=== PATIENT | female | born 1980 | race Hispanic/Latino ===

== ENCOUNTER 2018-11-27 08:44 | Inpatient (IN) | payer OTHER ==
[2018-11-27] VITALS (14 sets, daily range): BP systolic 96–135; BP diastolic 44–84
[~2018-11-27] VITALS: Ht 167.6 cm; Wt 83.5 kg
[2018-11-27] MEDS ORDERED: LACTATED RINGERS 1000ML 1,000 ML IV PRN (09:02)
[2018-11-27] MEDS ORDERED: OXYTOCIN-LR 20 UNITS/1000 ML 1,000 ML IV SCH (09:15)
[2018-11-27 09:32] LABS: MEAN CORPUSCULAR HEMOGLOBIN 32.6 pg (27.0-33.0); MEAN CORPUSCULAR HGB CONC 34.3 g/dL (32.0-36.0); NUCLEATED RED BLOOD CELLS 0.1 % (0.0-0.19); PLATELET COUNT (AUTO) 125 K/uL (130-400); RED BLOOD CELL COUNT(AUTO) 4.32 MIL/uL (4.00-5.50); RED CELL DISTRIBUTION WIDTH 14.1 % (11.0-15.5); WHITE BLOOD COUNT (AUTO) 8.3 K/uL (4.8-10.8)
[2018-11-27 10:00] LABS: CREATININE 0.8 mg/dL (0.5-1.5); POTASSIUM 4.3 mmol/L (3.5-5.1)
[2018-11-27 10:05] LABS: ALBUMIN 2.4 g/dL (3.5-5.0); BILIRUBIN,TOTAL 0.3 mg/dL (0.2-1.0); TOTAL PROTEIN, SERUM 6.5 g/dL (6.0-8.3); URIC ACID 5.5 mg/dL (2.6-7.2)
[2018-11-27 10:08] LABS: INR 0.86 (0.85-1.15); PARTIAL THROMBOPLASTIN TIME 27.1 SEC (26.3-35.5); PROTHROMBIN TIME 9.1 SEC (9.6-11.6)
[2018-11-27] MEDS ORDERED: CEFAZOLIN SODIUM 1 GM VIAL ONE (10:41)
[2018-11-27] MEDS ORDERED: CALDOLOR 800MG+NS 250ML 250 ML IV ONE (10:42)
[2018-11-27] MEDS ORDERED: CALDOLOR 800MG+NS 250ML 250 ML IV PRN (10:45)
[2018-11-27] MEDS ORDERED: CEFAZOLIN SODIUM 1 GM VIAL IVP PRN (10:45)
[2018-11-27] MEDS ORDERED: LACTATED RINGERS 1000ML 1,000 ML IV SCH (10:45)
[2018-11-27] MEDS ORDERED: FENTANYL CITRATE PF 50 MCG/1 ML 2ML VIAL ONE (10:59)
[2018-11-27] MEDS ORDERED: DURAMORPH PF1 MG/ML 10ML AMP IV ONE (10:59)
[2018-11-27] MEDS ORDERED: ONDANSETRON HCL 4 MG/2 ML VIAL ONE (10:59)
[2018-11-27] MEDS ORDERED: OXYTOCIN 10 UNIT/1ML 10ML VIAL ONE (10:59)
[2018-11-27] MEDS ORDERED: CEFAZOLIN SODIUM 1 GM VIAL IVP ONE (11:30)
[2018-11-27] MEDS ORDERED: EPHEDRINE SULFATE 50 MG/ML AMPULE ONE (11:46)
[2018-11-27] MEDS ORDERED: PHENYLEPHRINE HCL 10 MG/ML 1ML VIAL IV ONE (12:00)
[2018-11-27 12:09] LABS: APPEARANCE,URINE Clear (CLEAR); BILIRUBIN,URINE Negative (NEGATIVE); COLOR,URINE Yellow (YELLOW); GLUCOSE, URINE (UA) Negative (NEGATIVE); KETONES,URINE Negative (NEGATIVE); LEUKOCYTE ESTERASE ,URINE Negative (NEGATIVE); NITRATE,URINE Negative (NEGATIVE); OCCULT BLOOD,URINE Negative (NEGATIVE); PH,URINE 7.5 (5.0-8.0); PROTEIN,URINE Negative (NEGATIVE); UROBILINOGEN,URINE 0.2 mg/dL (0.2-1.0)
[2018-11-27 12:17] LABS: AMPHET/METH SCREEN,URINE NEGATIVE (NEGATIVE); BARBITURATE SCREEN, URINE NEGATIVE (NEGATIVE); BENZODIAZEPINES SCREEN,URINE NEGATIVE (NEGATIVE); CANNABINOID SCREEN,URINE NEGATIVE (NEGATIVE); COCAINE SCREEN,URINE NEGATIVE (NEGATIVE); OPIATE SCREEN,URINE NEGATIVE (NEGATIVE); PHENCYCLIDINE SCREEN,URINE NEGATIVE (NEGATIVE)
[2018-11-27] MEDS ORDERED: PROMETHAZINE HCL 25 MG/ML 1ML AMPULE IM PRN (12:30)
[2018-11-27] MEDS ORDERED: DEXTROSE 5 %-0.45 % NACL 1,000 ML IV PRN (12:30)
[2018-11-27] MEDS ORDERED: OXYTOCIN-LR 20 UNITS/1000 ML 1,000 ML IV PRN (12:30)
[2018-11-27] MEDS ORDERED: MEPERIDINE-PF 75 MG/ML SYG IM PRN (12:30)
[2018-11-27] MEDS ORDERED: SODIUM CHLORIDE 0.9% 10 ML VIAL IVP PRN (12:30)
[2018-11-27] MEDS ORDERED: GLYCOPYRROLATE 1 MG/5 ML SYRINGE ONE (13:10)
[2018-11-27] MEDS: CALDOLOR 800MG+NS 250ML 250 ML IV SCH (19:41)
[2018-11-27] MEDS ORDERED: [UNRECOGNIZED DRUG - CODE] PO (19:50)
[2018-11-28 03:16] VITALS: BP 93/52
[2018-11-28] MEDS: CALDOLOR 800MG+NS 250ML 250 ML IV SCH (04:35)
[2018-11-28 06:11] LABS: HEMATOCRIT 39.8 % (36-48); MEAN CORPUSCULAR HEMOGLOBIN 31.9 pg (27.0-33.0); MEAN CORPUSCULAR HGB CONC 33.3 g/dL (32.0-36.0); MEAN CORPUSCULAR VOLUME 95.7 fL (79-99); PLATELET COUNT (AUTO) 139 K/uL (130-400); RED BLOOD CELL COUNT(AUTO) 4.16 MIL/uL (4.00-5.50); RED CELL DISTRIBUTION WIDTH 14.1 % (11.0-15.5); WHITE BLOOD COUNT (AUTO) 8.9 K/uL (4.8-10.8)
--- NOTE | 2018-11-28 06:15 | NUR ---
bucio catheter removed, tip intact. pericare done, assisted to bedside chair, pt tolerated well. Addendum: 11/28/18 at 0631 by RAISSA LÓPEZ RN Amended: Links added.
[2018-11-28 07:20] VITALS: BP 110/65
--- NOTE | 2018-11-28 07:20 | NUR ---
PATIENT ASSESSED AND IS BACK TO BED. INCISION IS OPEN TO AIR AND NO DRAINAGE, OR REDNESS NOTED. INCISION IS OPEN TO AIR WITH HIDDEN STITCH. DENIES PAIN AND PLAN OF CARE EXPLAINED TO PATIENT. PATIENT STATES WANTING TO GO VISIT ONCE SHE CAN GO TO NURSERY. EXPLAINED TO CALL NURSERY AFTER 8AM FOR CLEARANCE TO GO VISIT BABIES.
[2018-11-28 07:25] LABS: HEPATITIS Bs ANTIGEN SCREEN P Negative (Negative)
[2018-11-28 07:30] LABS: RAPID PLASMA REAGIN NONREACTIVE (NONREACTIVE)
[2018-11-28] MEDS ORDERED: ACETAMINOPHEN-CODEINE 300/30MG TAB PO PRN (08:00)
[2018-11-28] MEDS ORDERED: ACETAMINOPHEN EXTRA STRENGTH 500 MG TABLET PO PRN (08:00)
[2018-11-28] MEDS ORDERED: HYDROCODONE/ACETAMINOPHEN 5/325 MG TAB PO PRN (08:00)
[2018-11-28] MEDS ORDERED: DIPH,PERTUSS(ACELL),TET VAC/PF 0.5 ML VIAL IM SCH (08:00)
[2018-11-28] MEDS ORDERED: BISACODYL 10 MG SUPP.RECT RC PRN (08:00)
[2018-11-28] MEDS ORDERED: MEASLES/MUMPS/RUBELLA VACCINE, LIVE 0.5 ML/VIAL SQ SCH (08:00)
--- NOTE | 2018-11-28 08:45 | NUR ---
PATIENT WAS GIVEN A.M. MEDS AND THEN CALLED NURSERY AND WAS INSTRUCTED SHE COULD GO TO NURSERY. ATTEMPTED TO VOID AND COULD NOT. PATIENT IS STILL DUE TO VOID.
[2018-11-28] MEDS: SIMETHICONE 80 MG TAB.CHEW PO PRN ×4 (08:47→20:51)
[2018-11-28] MEDS: DOCUSATE SODIUM 100 MG CAP PO SCH ×2 (08:47→20:51)
[2018-11-28] MEDS: IBUPROFEN 600 MG TABLET PO PRN ×3 (08:50→20:54)
--- NOTE | 2018-11-28 10:00 | NUR ---
DR. BARRON ROUNDED AND UPDATE GIVEN ON PATIENT. PATIENT WALKED TO NURSERY TO VISIT WITH BABIES AND TOLERATED ACTIVITY WELL.
--- NOTE | 2018-11-28 11:45 | NUR ---
UP AND WAS ABLE TO VOID 750CC OF URINE WITH SLIGHT BLOOD TINGES.
[2018-11-28 11:51] VITALS: BP 118/67
[2018-11-28] MEDS: IBUPROFEN 800 MG TAB PO SCH ×2 (12:30→20:30)
[2018-11-28 16:05] VITALS: BP 142/71
[2018-11-28 19:25] VITALS: BP 115/76
[2018-11-29 00:12] VITALS: BP 108/53
[2018-11-29 03:00] VITALS: BP 117/62
[2018-11-29] MEDS: IBUPROFEN 800 MG TAB PO SCH ×2 (05:44→12:03)
--- NOTE | 2018-11-29 07:30 | NUR ---
PATIENT ASSESSED AND C/O DISCOMFORT DUE TO NOT HAVING A BM YET. WARM PRUNE JUICE GIVEN TO DRINK PRIOR TO BREAKFAST. INCISION IS CLEAN AND DRY AND NO REDNESS OR DRAINAGE NOTED. HAS REMAINED AFEBRILE.
[2018-11-29 07:34] VITALS: BP 118/64
--- NOTE | 2018-11-29 08:30 | NUR ---
PATIENT STATES HAVING A BM SOON AFTER HAVING BREAKFAST AND WAS ABLE TO ALSO EXPEL MORE FLATUS. AMBULATED TO NURSERY.
[2018-11-29] MEDS: DOCUSATE SODIUM 100 MG CAP PO SCH (08:51)
[2018-11-29] MEDS: SIMETHICONE 80 MG TAB.CHEW PO PRN ×2 (08:51→12:02)
--- NOTE | 2018-11-29 12:00 | NUR ---
DISCHARGE INSTRUCTIONS GIVEN IN [facility] AND WAS REVIEWED WITH PATIENT. SCRIPT GIVEN TO PATIENT AND NEXT SCHEDULED DOSE EXPLAINED AND DOSAGE. VERBALIZED UNDERSTANDING INSTRUCTION GIVEN.
[2018-11-29 12:43] VITALS: BP 113/76
--- NOTE | 2018-11-29 12:50 | NUR ---
PATIENT WAS TAKEN VIA W/C TO FAMILY VEHICLE IN STABLE CONDITION AND WAS DISCHARGED TO SPOUSE. PATIENT AFEBRILE AND VITAL SIGNS WITH NORMAL LIMITS. TWINS NOT DISCHARGED.
== END 2018-11-29 12:50 | disposition home or self-care (01) | DRG 786 ==
LOC: EDH 08:44 → LDH 08:45 → OBSVTOIN 08:45 → WSH 13:30
PROVIDERS: ADMIT Obstetrics & Gynecology; ATTEND Obstetrics & Gynecology
PROC: 10D00Z1 Extraction of Products of Conception, Low, Open Approach (ICD-10-PCS; principal; 2018-11-27 11:30)
DX: O30.043 Twin pregnancy, dichorionic/diamniotic, third trimester (principal); O60.14X2 Preterm labor third trimester with preterm delivery third trimester, fetus 2; O60.14X1 Preterm labor third trimester with preterm delivery third trimester, fetus 1; O34.211 Maternal care for low transverse scar from previous cesarean delivery; O32.1XX1 Maternal care for breech presentation, fetus 1; O42.913 Preterm premature rupture of membranes, unspecified as to length of time between rupture and onset of labor, third trimester; Z37.2 Twins, both liveborn; Z3A.34 34 weeks gestation of pregnancy
CPT/HCPCS: 36415; 59510; 76805; 80053; 80305; 81003; 84550; 85027; 85384; 85610; 85730; 86592; 86701; 86850; 86900; 86901; 87340; 87390; 88307; A4344; A4450; A4606; G0378; J0690; J1741; J2274; J2370; J2405; J2590; J3010; J3490; J7120